=== PATIENT | male | born 1980 | race Caucasian/White ===

== ENCOUNTER → 2016-10-19 | Outpatient (CLI) | payer OTHER ==
--- NOTE | 2016-10-19 17:31 | REP ---
MAXILLOFACIAL CT WITHOUT CONTRAST: HISTORY: Nasal polyps. The uncinate processes are not completely seen. This is due to surgery or demineralization secondary to chronic sinusitis. Diffuse sinus mucosal thickening is present. There is almost complete opacification of the ethmoid, right maxillary and the left sphenoid sinuses. Mild mucosal thickening is present in the left maxillary and sphenoid sinuses. Minimal mucosal thickening is present in the frontal and right sphenoid sinuses. Mucosal thickening involves the osteomeatal units. The middle and inferior nasal turbinates are partially paradoxical. There is belen bullosa of the right middle nasal turbinate. There is mild deviation of the nasal septum to the left. The nasal septum abuts the left middle and inferior nasal turbinates. The cribriform plate, medial christopher, of the orbits and optic canals are intact. The carotid canals form a segment of the posterior lateral christopher of the sphenoid sinus. IMPRESSION: Sinus mucosal thickening as described above. Signed by Justin Valencia MD 10/19/2016 05:38 P
== END ==
LOC: M RAD 15:11
PROVIDERS: ATTEND Otolaryngology
DX: J33.9 Nasal polyp, unspecified (principal)

== ENCOUNTER → 2017-01-12 | Outpatient (CLI) | payer OTHER ==
--- NOTE | 2017-01-17 18:49 | SLEEPCENT ---
DATE OF PROCEDURE: 01/12/2017 REFERRING PHYSICIAN: Ms. Yadira Cali PA-C. 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 A total of 7 hours and 23 minutes of data was reviewed with 331 minutes of sleep identified. Sleep latency was 63.5 minutes. Rapid eye movement (REM) latency was 53 minutes. No slow wave sleep was identified. Sleep efficiency was 76.3%. Electrocardiogram (EKG) showed normal sinus rhythm with an average heart rate of 62 beats per minute. Speeding and slowing was noted surrounding some respiratory events. No epileptiform discharge observed. There were 27 respiratory events identified of 10 seconds in duration or longer for an apnea hypopnea index (AHI) of 5.1. Obstructive apneas/hypopneas occurred predominately in REM sleep. RERA index was 0.2, giving a total respiratory disturbance index (RDI) of 5.3. Mean oxygen saturation for this study was 93% with a minimal recorded volume of 84%. Arousal index was 6.4 with the majority of arousals related to limb movements. Periodic limb movement index was 4.9. IMPRESSION: Mild obstructive sleep apnea, mild with events not completely ablated by oral appliance. RECOMMENDATIONS: Returning to the laboratory for consideration of CPAP therapy or making adjustments in the oral appliance and then repeating a polysomnogram. MTDD
== END ==
LOC: M SLEEP 19:25
PROVIDERS: ATTEND Internal Medicine Pulmonary Disease
DX: G47.33 Obstructive sleep apnea (adult) (pediatric) (principal)

== ENCOUNTER → 2017-03-09 | Day surgery (SDC) | payer OTHER ==
[~2017-03-09] VITALS: Ht 182.9 cm; Wt 102.1 kg
[~2017-03-09] MED LIST: ACETAMINOPHEN 325 MG TAB As Ordered ONE; ACETAMINOPHEN TAB 650MG DOSE (2X325MG) PO PRN; EPINEPHrine 1MG/ML INJ 30ML MD-VIAL As Ordered ONE; LABETALOL HCL 100 MG/20 ML VIAL As Ordered ONE; LIDOCAINE 2% INJ 100 MG/5 ML SDV (FOR ANES.) As Ordered ONE; LIDOCAINE W/EPINEPHRINE 1% 20ML VIAL As Ordered ONE; LR 1,000 ML IV ONE; LR 1,000 ML IV SCH; METHYLENE BLUE 0.5% (5MG/ML) 10 ML AMP (PROVAYBLUE)(Q9968 PER 1MG) As Ordered ONE; MIDAZOLAM INJ 2 MG/2 ML VIAL (J2250) As Ordered ONE; ONDANSETRON 4MG/2ML VIAL (J2405) As Ordered ONE; ONDANSETRON 4MG/2ML VIAL (J2405) IV PRN; PERCOCET 5MG/325MG TAB As Ordered ONE; PERCOCET 5MG/325MG TAB PO ONE; PROPOFOL 200 MG/20 ML VIAL As Ordered ONE; ROCURONIUM BROMIDE 50 MG/5 ML VIAL/SYRINGE As Ordered ONE; SODIUM CHLORIDE 0.9% NASAL GEL 15MG (AYR) As Ordered ONE; dexameTHASONE 4 MG/ML 1ML VIAL (J1100) As Ordered ONE; dexameTHASONE 4 MG/ML 1ML VIAL (J1100) IV ONE; fentaNYL 100 MCG/2 ML INJECTION (J3010) As Ordered ONE; fentaNYL 100 MCG/2 ML INJECTION (J3010) IV PRN
[2017-03-09 15:50] VITALS: BP 151/80
--- NOTE | 2017-03-24 06:46 | RO ---
DATE OF PROCEDURE: 03/09/2017 PREOPERATIVE DIAGNOSES: Chronic maxillary sinusitis, chronic ethmoid sinusitis, chronic frontal sinusitis, bilateral nasal polyposis, and deviated nasal septum. POSTOPERATIVE DIAGNOSES: Chronic maxillary sinusitis, chronic ethmoid sinusitis, chronic frontal sinusitis, bilateral nasal polyposis, and deviated nasal septum. PROCEDURE PERFORMED: 1. Endoscopic septoplasty. 2. Bilateral maxillary antrostomy with removal of polypoid tissues. 3. Bilateral anterior and posterior ethmoidectomy. 4. Bilateral frontal sinusotomy using balloon Sinuplasty. 5. Implantation of bilateral Propel stents. SURGEON: Dr. Kojo Tovar [employer] UP OPERATOR: ANESTHESIA: General. CLINICAL PREAMBLE: This 36-year-old man presented to the office for evaluation of obstructive sleep apnea. Physical examination revealed bilateral nasal polyposis. CT scan revealed evidence of extensive chronic rhinosinusitis. Management options including surgery listed above have been discussed. The patient understands and consented to the procedure. DESCRIPTION OF PROCEDURE: Patient was identified in preoperative holding and brought to the operating room in stable condition. In supine position on the operating table, the patient received general anesthesia followed by orotracheal intubation without incident. Patient was prepped and draped in usual fashion for the procedure. Both eyes were protected using the lubricant and then closed using the Tegaderm. Both eyes remained visualized throughout the entire case. Both sides of the nasal cavity were packed using pledgets soaked in 1:1000 epinephrine. After a waiting period, the pledgets were removed. Using 0-degree nasal endoscope, both sides of the nasal cavity were visualized. Polypoid tissues were noted from both sides of the nasal cavity. Deviated nasal septum into the left side was noted. The left nasal septum was infiltrated with 1% lidocaine with 1:100,000 epinephrine. The vertical incision was made at the deviated portion of the nasal septum. Mucoperichondrial/mucoperiosteal flap was developed on the left side. The deviated portion of the septal cartilage and the septal bone were then resected with preservation of mucosa from the left and right side of the nasal septum. This afforded a much improved access to the left ostiomeatal complex. The anterior surfaces of the middle nasal turbinates as well as uncinate process were infiltrated with 1% lidocaine with 1:100,000 epinephrine. The polypoid tissue was then debrided from the left ostiomeatal complex area. Uncinectomy was then performed. The polypoid tissue around the left maxillary antrum was then successfully debrided and resected. Maxillary antrostomy was then performed with side-biting forceps. The left ethmoidal bulla was identified and penetrated using Blakesley forceps. The anterior ethmoid air cells were then resected. The ethmoidalis bulla was identified and then penetrated. The diseased posterior ethmoid air cells were then resected using cutting forceps, as well. The balloon was introduced into the left frontal recess using the Fliggo balloon system. Positive illumination of the left frontal sinus was achieved. The balloon was then advanced into the frontal recess completely and then inflated to 12 atmospheric pressure for 5 seconds. The left nasal cavity was then packed with pledgets soaked in 1:1000 epinephrine. The same procedure was then carried out to perform the right maxillary antrostomy with polypectomy, right anterior and posterior ethmoidectomy, as well as the right frontal sinusotomy using the balloon from the Entellus. Upon further visualization, accessory ostium was noted for each side of the lateral nasal wall. Decision was made to resect the bridging tissue between the main maxillary antrum and the accessory ostium posterior to the main antrum for the right and left side. The Propel stents were then successfully implanted into the left and the right ostiomeatal complex region to afford medialization of the middle nasal turbinates. At the end of procedure, sponge and instrument counts were correct. No complication was encountered. Estimated blood loss was approximately 50 mL. General anesthesia was reversed, and patient was extubated and brought to recovery room in stable condition. In the recovery area, patient exhibited full and symmetrical eye motions with no evidence of periorbital ecchymosis. Pupils were equal and reactive.
== END | disposition home or self-care (01) ==
LOC: M SDC 07:01
PROVIDERS: ATTEND Otolaryngology
DX: J32.0 Chronic maxillary sinusitis (principal); J32.1 Chronic frontal sinusitis; J32.2 Chronic ethmoidal sinusitis; J34.2 Deviated nasal septum; G47.33 Obstructive sleep apnea (adult) (pediatric)
CPT/HCPCS: 30520; 31255; 31267; 31296; 88300; 88304; 88305; C2625; J1100; J2250; J2405; J3010; Q9968

== ENCOUNTER → 2017-04-16 | Outpatient (CLI) | payer OTHER ==
--- NOTE | 2017-05-02 18:09 | SLEEPCENT ---
DATE OF PROCEDURE: 04/16/2017 REFERRING PROVIDER: Dr. Alessandro Swartz INTERPRETATION: Nocturnal polysomnography was performed for the re-evaluation of this patient with mild obstructive sleep apnea who had undergone a septoplasty and maxillary antrostomy in February of this year. A total of 8 hours and 18 minutes of data was reviewed with 416.5 minutes of sleep identified. Sleep latency was 33 minutes. Rapid eye movement (REM) latency was 58.5 minutes. All stages of sleep were identified. Sleep efficiency was 84.5%. EKG showed normal sinus rhythm with an average heart rate of 60 beats per minute. No epileptiform discharge was seen. There were 4 respiratory events identified of 10 seconds in duration or longer for an apnea-hypopnea index (AHI) of 0.6. Respiratory event related arousal (RERA) index was 9 giving a total respiratory disturbance index (RDI) of 0.6. Mean oxygen saturation for this study was 94% with a minimum recorded value of 90%. Arousal index was 3.5. Periodic limb movement index was 1.3. IMPRESSION: Snoring, no evidence of sleep disordered breathing. MTDD
== END ==
LOC: M SLEEP 20:00
PROVIDERS: ATTEND Internal Medicine Pulmonary Disease
DX: G47.33 Obstructive sleep apnea (adult) (pediatric) (principal)